=== PATIENT | male | born 1950 ===

== ENCOUNTER 2023-02-04 06:35 | Emergency (ER) | payer SELFPAY | END 2023-02-04 06:38 | disposition left against medical advice (07) | LOC: EMS 06:37 | DX: R19.7 Diarrhea, unspecified (principal); R06.02 Shortness of breath; R05.9 Cough, unspecified; Z53.21 Procedure and treatment not carried out due to patient leaving prior to being seen by health care provider | CPT/HCPCS: 93005; 99281; Z7502 ==